=== PATIENT | female | born 1960 | race Caucasian/White ===

== ENCOUNTER 2018-03-08 10:54 | Emergency (ER) | payer SELFPAY ==
[~2018-03-08] VITALS: Ht 162.6 cm; Wt 59.0 kg
[2018-03-08] MEDS ORDERED: IBUPROFEN 600MG TABLET PO ONE (11:15)
[2018-03-08 11:20] VITALS: BP 129/62
== END 2018-03-08 11:56 | disposition left against medical advice (07) ==
LOC: ER 10:54
DX: S00.83XA Contusion of other part of head, initial encounter (principal); R07.81 Pleurodynia; Y08.89XA Assault by other specified means, initial encounter; Y93.89 Activity, other specified; Y92.89 Other specified places as the place of occurrence of the external cause; Y99.8 Other external cause status
CPT/HCPCS: 99283

== ENCOUNTER 2018-03-11 07:02 | Emergency (ER) | payer MEDICAID ==
[~2018-03-11] VITALS: Ht 177.8 cm; Wt 66.0 kg
[2018-03-11] MEDS ORDERED: ACETAMINOPHEN 325MG TABLET PO ONE (08:00)
[2018-03-11] MEDS ORDERED: IBUPROFEN 800MG TABLET PO ONE (10:00)
[2018-03-11 10:16] VITALS: BP 131/86
[2018-03-11] MEDS ORDERED: HYDROCODONE/ACETAMINOPHEN 5/325MG TABLET PO ONE (10:45)
== END 2018-03-11 11:27 | disposition home or self-care (01) ==
LOC: ER 07:02
DX: S22.41XA Multiple fractures of ribs, right side, initial encounter for closed fracture (principal); S00.83XA Contusion of other part of head, initial encounter; R42 Dizziness and giddiness; Y04.2XXA Assault by strike against or bumped into by another person, initial encounter; Y93.89 Activity, other specified; Y92.410 Unspecified street and highway as the place of occurrence of the external cause; K02.9 Dental caries, unspecified; Z59.0 Homelessness; R03.0 Elevated blood-pressure reading, without diagnosis of hypertension
CPT/HCPCS: 70486; 71100; 99284